=== PATIENT | female | born 1995 | race Two or more races ===

== ENCOUNTER 2017-01-05 15:52 | Emergency (ER) | payer OTHER ==
[2017-01-05 17:59] LABS: URINE SOURCE CLEAN CATCH
[2017-01-05 18:05] LABS: URINE APPEARANCE CLEAR; URINE BILIRUBIN NEG (NEG); URINE BLOOD NEG (NEG); URINE COLOR YELLOW; URINE GLUCOSE NEG (NEG); URINE KETONE NEG (NEG); URINE LEUKOCYTE ESTERASE NEG (NEG); URINE NITRATE NEG (NEG); URINE PH 5.5 (5-8); URINE PROTEIN NEG (NEG); URINE SPECIFIC GRAVITY 1.021 (1.003-1.035)
[2017-01-05 18:13] LABS: CULTURE INDICATED? NO
== END 2017-01-05 18:55 | disposition home or self-care (01) ==
LOC: CED 15:52
DX: S39.012A Strain of muscle, fascia and tendon of lower back, initial encounter (principal); W01.0XXA Fall on same level from slipping, tripping and stumbling without subsequent striking against object, initial encounter; Y92.9 Unspecified place or not applicable
CPT/HCPCS: 81003; 84703; 99283